=== PATIENT | female | born 1950 | race Caucasian/White ===

== ENCOUNTER → 2017-12-26 | Outpatient (CLI) | payer MEDICARE | END | disposition home or self-care (01) | LOC: CFH 09:55 | PROVIDERS: ATTEND Nurse Practitioner Primary Care | DX: M85.80 Other specified disorders of bone density and structure, unspecified site (principal); M80.052A Age-related osteoporosis with current pathological fracture, left femur, initial encounter for fracture; N95.9 Unspecified menopausal and perimenopausal disorder | CPT/HCPCS: 77080 ==

== ENCOUNTER → 2018-09-12 | Outpatient (CLI) | payer MEDICARE ==
[~2018-09-12] MED LIST: HCTZ PO; amlodipine PO; celebrex PO; lipitor PO; prolia PO
== END | disposition home or self-care (01) ==
LOC: RAD 15:07
PROVIDERS: ATTEND Dermatology
DX: M27.8 Other specified diseases of jaws (principal); K04.6 Periapical abscess with sinus
CPT/HCPCS: 70100

== ENCOUNTER 2018-09-14 13:53 | Emergency (ER) | payer MEDICARE ==
[~2018-09-14] VITALS: Ht 152.4 cm; Wt 55.7 kg
[2018-09-14 15:11] LABS: BASOPHILS # (AUTO) 0.02 x10^3/uL (0-0.1); BASOPHILS % (AUTO) 0 % (0-1); EOSINOPHILS # (AUTO) 0.13 x10^3/uL (0-0.4); EOSINOPHILS % (AUTO) 2 % (1-7); HCT (SEDRATE) 36.9 % (34.6-47.8); LYMPHOCYTES % (AUTO) 25 % (22-44); MD NO; MEAN CORPUSCULAR HGB CONC 33.1 g/dL (32.4-35.8); MEAN CORPUSCULAR VOLUME 87.8 fL (80-100); MEAN PLATELET VOLUME 7.7 fL (7.4-10.4); MONOCYTES # (AUTO) 0.45 x10^3/uL (0.2-0.8); MONOCYTES % (AUTO) 6 % (2-9); NEUTROPHILS # (AUTO) 4.94 x10^3/uL (1.8-6.8); NEUTROPHILS % (AUTO) 67 % (42-75); PLATELET COUNT 368 x10^3/uL (130-400); RED BLOOD COUNT 4.18 x10^6/uL (3.82-5.3); RED CELL DISTRIBUTION WIDTH 15.7 % (9.6-15.2)
[2018-09-14 15:19] LABS: ALBUMIN 3.3 g/dL (3.4-5.0); ANION GAP 7 mmol/L (5-15); CALCIUM 9.6 mg/dL (8.5-10.1); CHLORIDE 107 mmol/L (98-107); CREATININE 0.85 mg/dL (0.55-1.02)
--- NOTE | 2018-09-14 16:24 | NUR ---
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
--- NOTE | 2018-09-14 16:38 | NUR ---
Pt resting on gurney, placed on monitors, VSS. Pt denies pain, states it's more of an irritation, pt has been seen several times for same. Most recently pt was seen here on Tuesday and Rx Augmentin and Bactrim DS. MRI results back, pt chart up for recheck.
[2018-09-14] MEDS ORDERED: amlodipine PO (16:42)
[2018-09-14] MEDS ORDERED: celebrex PO (16:42)
[2018-09-14] MEDS ORDERED: prolia PO (16:42)
[2018-09-14] MEDS ORDERED: HCTZ PO (16:42)
[2018-09-14] MEDS ORDERED: lipitor PO (16:42)
--- NOTE | 2018-09-14 17:33 | NUR ---
Pt resting in gurney, remains on monitors, VSS. Pt becoming very anxious to see provider.
--- NOTE | 2018-09-14 18:00 | NUR ---
Dr. Kim at bedside to evaluate pt and discuss POC.
--- NOTE | 2018-09-14 18:06 | NUR ---
PIV started, pt aware of plan for MRI with contrast.
--- NOTE | 2018-09-14 18:52 | NUR ---
Pt to imaging, with tech, via gunava.
--- NOTE | 2018-09-14 19:35 | NUR ---
Pt back to room from imaging.
--- NOTE | 2018-09-14 21:12 | NUR ---
Dr. Kim at bedside to discuss ED findings and POC.
[2018-09-14 21:13] VITALS: BP 126/72
--- NOTE | 2018-09-14 21:43 | NUR ---
Patient/Caregiver given discharge instructions and they have confirmed that they understand the instructions. Patient ambulatory with steady gait.
== END 2018-09-14 21:44 | disposition home or self-care (01) ==
LOC: ED 21:05
DX: M27.2 Inflammatory conditions of jaws (principal); K04.7 Periapical abscess without sinus; I10 Essential (primary) hypertension
CPT/HCPCS: 36415; 70336; 70542; 80048; 82040; 83605; 85025; 85651; 86140; 87040; 99284

== ENCOUNTER 2019-08-10 09:04 | Outpatient (CLI) | payer MEDICARE | END 2019-08-10 23:59 | disposition home or self-care (01) | LOC: WOUND 09:04 | PROVIDERS: ATTEND Family Medicine | DX: T81.31XA Disruption of external operation (surgical) wound, not elsewhere classified, initial encounter (principal); L98.494 Non-pressure chronic ulcer of skin of other sites with necrosis of bone; I10 Essential (primary) hypertension; M19.90 Unspecified osteoarthritis, unspecified site; Z88.2 Allergy status to sulfonamides; Y83.8 Other surgical procedures as the cause of abnormal reaction of the patient, or of later complication, without mention of misadventure at the time of the procedure; Y92.89 Other specified places as the place of occurrence of the external cause | CPT/HCPCS: G0463 ==

== ENCOUNTER 2019-08-15 09:11 | Outpatient (CLI) | payer MEDICARE | END 2019-08-15 23:59 | disposition home or self-care (01) | LOC: WOUND 09:11 | PROVIDERS: ATTEND Internal Medicine | DX: T81.31XD Disruption of external operation (surgical) wound, not elsewhere classified, subsequent encounter (principal); L98.494 Non-pressure chronic ulcer of skin of other sites with necrosis of bone; I10 Essential (primary) hypertension; M19.90 Unspecified osteoarthritis, unspecified site; E78.5 Hyperlipidemia, unspecified; Z90.710 Acquired absence of both cervix and uterus; Z88.2 Allergy status to sulfonamides; Y83.8 Other surgical procedures as the cause of abnormal reaction of the patient, or of later complication, without mention of misadventure at the time of the procedure | CPT/HCPCS: G0463 ==

== ENCOUNTER → 2019-08-15 | Outpatient (CLI) | payer MEDICARE | END | disposition home or self-care (01) | LOC: RAD 09:45 | PROVIDERS: ATTEND Internal Medicine | DX: M27.8 Other specified diseases of jaws (principal) | CPT/HCPCS: 70100 ==

== ENCOUNTER → 2019-08-24 | Outpatient (CLI) | payer MEDICARE | END | disposition home or self-care (01) | LOC: WOUND 12:54 | PROVIDERS: ATTEND Family Medicine | DX: T81.31XD Disruption of external operation (surgical) wound, not elsewhere classified, subsequent encounter (principal); L98.494 Non-pressure chronic ulcer of skin of other sites with necrosis of bone; I10 Essential (primary) hypertension; M19.90 Unspecified osteoarthritis, unspecified site; Z88.2 Allergy status to sulfonamides; Y83.8 Other surgical procedures as the cause of abnormal reaction of the patient, or of later complication, without mention of misadventure at the time of the procedure | CPT/HCPCS: 97602 ==

== ENCOUNTER → 2019-09-07 | Outpatient (CLI) | payer MEDICARE | END | disposition home or self-care (01) | LOC: WOUND 08:49 | PROVIDERS: ATTEND Family Medicine | DX: T81.31XD Disruption of external operation (surgical) wound, not elsewhere classified, subsequent encounter (principal); L98.494 Non-pressure chronic ulcer of skin of other sites with necrosis of bone; I10 Essential (primary) hypertension; M19.90 Unspecified osteoarthritis, unspecified site; E78.5 Hyperlipidemia, unspecified; Z88.2 Allergy status to sulfonamides; Z90.710 Acquired absence of both cervix and uterus; Y83.8 Other surgical procedures as the cause of abnormal reaction of the patient, or of later complication, without mention of misadventure at the time of the procedure | CPT/HCPCS: 11042 ==

== ENCOUNTER 2019-09-14 09:26 | Outpatient (CLI) | payer MEDICARE | END 2019-09-14 23:59 | disposition home or self-care (01) | LOC: WOUND 09:26 | PROVIDERS: ATTEND Family Medicine | DX: T81.31XD Disruption of external operation (surgical) wound, not elsewhere classified, subsequent encounter (principal); L98.494 Non-pressure chronic ulcer of skin of other sites with necrosis of bone; I10 Essential (primary) hypertension; M19.90 Unspecified osteoarthritis, unspecified site; E78.5 Hyperlipidemia, unspecified; Z90.710 Acquired absence of both cervix and uterus; Y83.8 Other surgical procedures as the cause of abnormal reaction of the patient, or of later complication, without mention of misadventure at the time of the procedure | CPT/HCPCS: 97597 ==

== ENCOUNTER → 2019-09-21 | Outpatient (CLI) | payer MEDICARE | END | disposition home or self-care (01) | LOC: WOUND 08:38 | PROVIDERS: ATTEND Family Medicine | DX: T81.31XD Disruption of external operation (surgical) wound, not elsewhere classified, subsequent encounter (principal); L98.494 Non-pressure chronic ulcer of skin of other sites with necrosis of bone; I10 Essential (primary) hypertension; M19.90 Unspecified osteoarthritis, unspecified site; E78.5 Hyperlipidemia, unspecified; Z90.710 Acquired absence of both cervix and uterus; Y83.8 Other surgical procedures as the cause of abnormal reaction of the patient, or of later complication, without mention of misadventure at the time of the procedure; Z88.2 Allergy status to sulfonamides | CPT/HCPCS: G0463 ==

== ENCOUNTER → 2019-09-28 | Outpatient (CLI) | payer MEDICARE | END | disposition home or self-care (01) | LOC: WOUND 09:15 | PROVIDERS: ATTEND Family Medicine | DX: T81.31XD Disruption of external operation (surgical) wound, not elsewhere classified, subsequent encounter (principal); L98.494 Non-pressure chronic ulcer of skin of other sites with necrosis of bone; I10 Essential (primary) hypertension; M19.90 Unspecified osteoarthritis, unspecified site; M27.8 Other specified diseases of jaws; E78.5 Hyperlipidemia, unspecified; Z90.710 Acquired absence of both cervix and uterus; Z88.2 Allergy status to sulfonamides; Z90.49 Acquired absence of other specified parts of digestive tract; Y83.8 Other surgical procedures as the cause of abnormal reaction of the patient, or of later complication, without mention of misadventure at the time of the procedure | CPT/HCPCS: G0463 ==